=== PATIENT | male | born 1985 | race Caucasian/White ===

== ENCOUNTER 2017-04-06 22:40 | Emergency (ER) | payer SELFPAY ==
[~2017-04-06] VITALS: Ht 165.1 cm; Wt 58.5 kg
[~2017-04-06 22:40] MED LIST: ACETAMINOPHEN500 MG PO; AZITHROMYCIN500 M1 PO; KEFLEX500 MG PO
[2017-04-07] MEDS ORDERED: NAPROXEN500 MG PO (00:36)
[2017-04-07] MEDS ORDERED: PERCOCET 5/31 TABLET PO (00:36)
[2017-04-07 01:01] VITALS: BP 114/64
== END 2017-04-07 01:11 | disposition home or self-care (01) ==
LOC: RME 22:40 → EME 22:40 → RME 04-07 01:11
DX: M54.41 Lumbago with sciatica, right side (principal)
CPT/HCPCS: 99281; 99284; J3010; J7512